=== PATIENT | male | born 1955 | race Caucasian/White ===

== ENCOUNTER 2021-05-27 11:43 | Inpatient (IN) | payer OTHER ==
[~2021-05-27] VITALS: Ht 188 cm; Wt 124.0 kg
[2021-05-27 13:07] LABS: HEMOGLOBIN 13.7 gm/dl (14.0-17.5); RED BLOOD COUNT 4.42 M/UL (4.20-5.50); WHITE BLOOD COUNT 6.5 K/UL (4.5-11.0)
[2021-05-27 13:30] LABS: BUN/CREATININE RATIO 15 (0-10)
[2021-05-27] MEDS ORDERED: METOPROLOL TART50 MG PO (17:15)
[2021-05-27] MEDS ORDERED: METFORMIN HCL1000 MG PO (17:15)
[2021-05-27] MEDS ORDERED: ENALAPRIL MALEA20 MG PO (17:15)
[2021-05-27] MEDS ORDERED: AMLODIPINE BESY10 MG PO (17:15)
[2021-05-27] MEDS ORDERED: FLOMAX 0.4 MG0.4 MG PO (17:16)
[2021-05-27] MEDS ORDERED: ATORVASTATIN CA80 MG PO (17:16)
[2021-05-27] MEDS ORDERED: VITAMIN D325 MC6 PO (17:17)
[2021-05-27] MEDS ORDERED: OMEPRAZOLE20 MG PO (17:18)
[2021-05-27] MEDS ORDERED: FLUOXETINE HCL20 M1 PO (17:18)
[2021-05-27] MEDS ORDERED: DONEPEZIL HCL10 MG PO (17:18)
[2021-05-27] MEDS ORDERED: B-12500 MCG PO (17:19)
[2021-05-27] MEDS ORDERED: TEGRETOL200 MG PO (17:20)
[2021-05-27] MEDS ORDERED: GLIPIZIDE10 MG PO (17:20)
[2021-05-27] MEDS ORDERED: LANTUS SOL100 UNIT/1 SQ (17:20)
[2021-05-27] MEDS ORDERED: NAPROXEN500 MG PO (17:21)
[2021-05-27] MEDS ORDERED: LOPERAMIDE2 MG PO (17:21)
[2021-05-28 03:13] LABS: HEMOGLOBIN 12.2 gm/dl (14.0-17.5)
[2021-05-28 03:15] LABS: RED BLOOD COUNT 3.93 M/UL (4.20-5.50); WHITE BLOOD COUNT 3.4 K/UL (4.5-11.0)
[2021-05-28 03:36] LABS: BUN/CREATININE RATIO 16 (0-10)
[2021-05-29 03:34] LABS: HEMOGLOBIN 12.4 gm/dl (14.0-17.5)
[2021-05-29 04:06] LABS: BUN/CREATININE RATIO 20 (0-10)
[2021-05-30 03:10] LABS: HEMOGLOBIN 12.3 gm/dl (14.0-17.5); RED BLOOD COUNT 3.64 M/UL (4.20-5.50); WHITE BLOOD COUNT 5.2 K/UL (4.5-11.0)
[2021-05-30 03:36] LABS: BUN/CREATININE RATIO 23 (0-10)
[2021-05-30] MEDS ORDERED: DECADRON6 MG PO (09:26)
[2021-05-30] MEDS ORDERED: COMBIVENT RESPIM4 GM INH (09:26)
[2021-05-30] MEDS ORDERED: LANTUS SOL100 UNIT/1 SQ ×2 (09:26→09:44)
[2021-05-30] MEDS ORDERED: ACETAMINOPHEN325 MG PO (09:44)
== END 2021-05-30 12:36 | disposition home or self-care (01) | DRG 177 ==
LOC: ER1 11:43 → PROG CARE 16:51 → CDU 16:51 → PROG CARE 18:51
PROVIDERS: Family Medicine; ADMIT Internal Medicine Infectious Disease
PROC: 3E0333Z Introduction of Anti-inflammatory into Peripheral Vein, Percutaneous Approach (ICD-10-PCS; principal; 2021-05-27)
PROC: XW0DXM6 Introduction of Baricitinib into Mouth and Pharynx, External Approach, New Technology Group 6 (ICD-10-PCS; 2021-05-27)
PROC: 8E0ZXY6 Isolation (ICD-10-PCS; 2021-05-27)
DX: U07.1 COVID-19 (principal); J12.82 Pneumonia due to coronavirus disease 2019; J96.01 Acute respiratory failure with hypoxia; L02.211 Cutaneous abscess of abdominal wall; K21.9 Gastro-esophageal reflux disease without esophagitis; N40.0 Benign prostatic hyperplasia without lower urinary tract symptoms; E78.5 Hyperlipidemia, unspecified; I11.0 Hypertensive heart disease with heart failure; F41.9 Anxiety disorder, unspecified; K44.9 Diaphragmatic hernia without obstruction or gangrene; E11.65 Type 2 diabetes mellitus with hyperglycemia; I10 Essential (primary) hypertension; G47.33 Obstructive sleep apnea (adult) (pediatric); G47.36 Sleep related hypoventilation in conditions classified elsewhere; Z79.4 Long term (current) use of insulin; Z83.3 Family history of diabetes mellitus; Z82.49 Family history of ischemic heart disease and other diseases of the circulatory system; Z91.14 Patient's other noncompliance with medication regimen; Z23 Encounter for immunization
CPT/HCPCS: 0241U; 36415; 36600; 71045; 80053; 82550; 82553; 82728; 82803; 82962; 83036; 83605; 83615; 83735; 84443; 84484; 85025; 85379; 86140; 87040; 93005; 94640; 94664; 94760; 99285; J1100; J1650

== ENCOUNTER 2022-01-17 13:23 | Emergency (ER) | payer OTHER ==
[~2022-01-17 13:23] MED LIST: ACETAMINOPHEN325 MG PO; AMLODIPINE BESY10 MG PO; ATORVASTATIN CA80 MG PO; B-12500 MCG PO; COMBIVENT RESPIM4 GM INH; DECADRON6 MG PO; DONEPEZIL HCL10 MG PO; ENALAPRIL MALEA20 MG PO; FLOMAX 0.4 MG0.4 MG PO; FLUOXETINE HCL20 M1 PO; GLIPIZIDE10 MG PO; LANTUS SOL100 UNIT/1 SQ; LOPERAMIDE2 MG PO; METFORMIN HCL1000 MG PO; METOPROLOL TART50 MG PO; NAPROXEN500 MG PO; OMEPRAZOLE20 MG PO; TEGRETOL200 MG PO; VITAMIN D325 MC6 PO
[2022-01-17] MEDS ORDERED: AMOXICILLIN500 MG PO (13:58)
[2022-01-17] MEDS ORDERED: SUDAFED 30 MG T30 MG PO (13:58)
== END 2022-01-17 14:26 | disposition home or self-care (01) ==
LOC: ER1 13:23
DX: H66.93 Otitis media, unspecified, bilateral (principal); E11.9 Type 2 diabetes mellitus without complications; I10 Essential (primary) hypertension
CPT/HCPCS: 99282